=== PATIENT | male | born 1935 | race Caucasian/White ===

== ENCOUNTER 2017-03-05 12:51 | Inpatient (IN) | payer OTHER ==
[~2017-03-05] VITALS: Ht 172.7 cm; Wt 73.8 kg
[2017-03-05 14:19] LABS: EOSINOPHIL (%) 1.9 % (0-5); EOSINOPHIL COUNT 0.1 K/uL (0-0.3); IMMATURE GRANULOCYTE (%) 0.3 % (0.0-0.7); INSTRUMENT ABS NEUTROPHIL CT 4.6 K/uL; LYMPHOCYTE COUNT 1.1 K/uL (1.0-2.8); MCHC 35.2 G/DL (30.0-36.0); MCV 93.8 FL (86-99); MONOCYTE (%) 6.3 % (3-12); MONOCYTE COUNT 0.4 K/uL (0-0.8); NEUTROPHIL (%) 73.9 % (45-76); NEUTROPHIL COUNT 4.6 K/uL (1.8-6.4); PLATELET COUNT 169 K/uL (156-360); RBC DIS.WIDTH-CV 12.2 % (11.8-14.6); RBC DIS.WIDTH-SD 41.9 % (39-53); RED BLOOD COUNT 3.52 M/uL (4.00-5.50); WHITE BLOOD COUNT 6.2 K/uL (4.1-10.2)
[2017-03-05 14:20] LABS: ADD MIUA? NO; BILIRUBIN NEGATIVE; BLOOD NEGATIVE; COLOR YELLOW ((YELLOW)); GLUCOSE (STRIP) >=500; KETONES NEGATIVE; LEUKOCYTES NEGATIVE; NITRITE NEGATIVE; PROTEIN (STRIP) 30; SPECIFIC GRAVITY 1.015 (1.000-1.030); UCUL ADDED? NO; UROBILINOGEN 0.2 MG/DL (0.2-1.0)
[2017-03-05 14:32] LABS: PROTHROMBIN TIME 11.5 SEC (10.2-12.9)
[2017-03-05 14:35] LABS: PTT 27.3 SEC (25-37)
[2017-03-05 14:44] LABS: TROP-I INTERPRETATION NEGATIVE; TROPONIN-I < 0.01 ng/mL (0.0-0.30)
[2017-03-05 15:08] LABS: CHLORIDE 104 mEq/L (99-109); POTASSIUM 4.3 mEq/L (3.7-5.4); SODIUM 137 mEq/L (136-147)
[2017-03-05 15:10] LABS: GLUCOSE 274 mg/dL (70-99)
[2017-03-05 15:11] LABS: ANION GAP 12 MEQ/L (2-14)
[2017-03-05 15:14] LABS: GFR ESTIMATE (CALCULATED) 25 mL/min/
[2017-03-05 15:15] LABS: UREA NITROGEN (BUN) 31 mg/dL (9-23)
[2017-03-05] MEDS ORDERED: IRON325 M1 PO (16:54)
[2017-03-05] MEDS ORDERED: GABAPENTIN600 MG PO (16:54)
[2017-03-05] MEDS ORDERED: ERGOCALCIF50000 UNIT PO (16:54)
[2017-03-05] MEDS ORDERED: LISINOPRIL20 MG PO (16:55)
[2017-03-05] MEDS ORDERED: GEMFIBROZIL600 MG PO (16:56)
[2017-03-05] MEDS ORDERED: DONEPEZIL HCL10 MG PO (16:56)
[2017-03-05] MEDS ORDERED: OMEPRAZOLE40 M1 PO (16:56)
[2017-03-05] MEDS ORDERED: PRAVASTATIN SOD40 MG PO (16:57)
[2017-03-05] MEDS ORDERED: LOPRESSOR50 MG PO (16:57)
[2017-03-05] MEDS ORDERED: IBUPROFEN800 MG PO (16:57)
[2017-03-05] MEDS ORDERED: HYDROCHLOROTHIA25 MG PO (16:57)
[2017-03-05] MEDS ORDERED: TRAMADOL HCL50 MG PO (16:58)
[2017-03-05] MEDS ORDERED: AMARYL4 MG PO (16:58)
[2017-03-05] MEDS ORDERED: BISOPROLOL FUMAR5 MG PO (16:58)
[2017-03-05] MEDS ORDERED: LO-DOSE ASPIRIN81 M2 PO (16:59)
[2017-03-05 17:48] VITALS: BP 146/82
[2017-03-05 18:21] LABS: POINT-OF-CARE METER ID UU14174225
[2017-03-05 19:48] VITALS: BP 152/88
[2017-03-05 21:28] LABS: POINT-OF-CARE METER ID UU14174225
[2017-03-05 23:42] VITALS: BP 166/79
[2017-03-06 06:11] LABS: MCH 33.1 PG (29.0-34.0); MCHC 35.5 G/DL (30.0-36.0); MCV 93.4 FL (86-99); MEAN PLAT.VOLUME 12.1 uM^3 (9.0-12.4); PLATELET COUNT 158 K/uL (156-360); RBC DIS.WIDTH-CV 12.1 % (11.8-14.6); RBC DIS.WIDTH-SD 41.2 % (39-53); RED BLOOD COUNT 3.32 M/uL (4.00-5.50); WHITE BLOOD COUNT 7.1 K/uL (4.1-10.2)
[2017-03-06 06:38] LABS: ANION GAP 13 MEQ/L (2-14); CHLORIDE 105 MEQ/L (99-109); GFR ESTIMATE (CALCULATED) 37 mL/min/; GLUCOSE 155 mg/dL (70-99); HDL CHOLESTEROL 31 MG/DL (Desirable>=40); NON-HDL CHOLESTEROL 162 mg/dL (Desirable<160); POTASSIUM 3.9 MEQ/L (3.7-5.4); SAMPLE HEMOLYSIS CHECK 0; SAMPLE ICTERIC CHECK 0; SAMPLE LIPEMIA CHECK 0; SODIUM 139 MEQ/L (136-147); TOTAL CHOLESTEROL 193 mg/dL (Desirable<200); TRIGLYCERIDES 418 MG/DL (Normal: <150); UREA NITROGEN (BUN) 31 mg/dL (9-23)
[2017-03-06 07:42] LABS: POINT-OF-CARE METER ID UU13113717
[2017-03-06 08:48] VITALS: BP 156/89
[2017-03-06 09:57] LABS: Estimated Average Glucose 220 mg/dL (70-123); HEMOGLOBIN A1c (GLYCOHEMOGLOB) 9.3 % HGB (Below 5.7)
[2017-03-06 12:24] VITALS: BP 144/78
[2017-03-06 15:46] VITALS: BP 138/74
[2017-03-06 19:47] VITALS: BP 180/81
[2017-03-06 20:44] LABS: POINT-OF-CARE METER ID UU13113717
[2017-03-07 00:29] VITALS: BP 189/88
[2017-03-07 03:41] VITALS: BP 187/78
[2017-03-07 08:01] VITALS: BP 180/84
[2017-03-07 08:37] LABS: POINT-OF-CARE METER ID UU14174225
[2017-03-07 08:44] LABS: HEMATOCRIT 32.7 % (38.0-50.0); MCHC 36.1 G/DL (30.0-36.0); MCV 94.2 FL (86-99); NRBC (%) 0.4 /100 WBC (0-0); PLATELET COUNT 177 K/uL (156-360); RBC DIS.WIDTH-CV 12.4 % (11.8-14.6); RBC DIS.WIDTH-SD 42.3 % (39-53); RED BLOOD COUNT 3.47 M/uL (4.00-5.50); WHITE BLOOD COUNT 7.9 K/uL (4.1-10.2)
[2017-03-07 11:13] LABS: ANION GAP 12 MEQ/L (2-14); CHLORIDE 107 MEQ/L (99-109); POTASSIUM 4.2 MEQ/L (3.7-5.4); SAMPLE HEMOLYSIS CHECK 0; SAMPLE ICTERIC CHECK 0; SAMPLE LIPEMIA CHECK 0; SODIUM 136 MEQ/L (136-147)
[2017-03-07 11:21] LABS: GFR ESTIMATE (CALCULATED) 39 mL/min/; UREA NITROGEN (BUN) 28 mg/dL (9-23)
[2017-03-07 11:32] LABS: GLUCOSE 253 mg/dL (70-99)
[2017-03-07 15:09] VITALS: BP 137/80
[2017-03-07 17:08] LABS: POINT-OF-CARE METER ID UU14188625
[2017-03-07 23:32] VITALS: BP 178/83
[2017-03-08 07:51] LABS: HEMATOCRIT 32.2 % (38.0-50.0); MCH 32.9 PG (29.0-34.0); MCHC 35.4 G/DL (30.0-36.0); MCV 93.1 FL (86-99); MEAN PLAT.VOLUME 12.2 uM^3 (9.0-12.4); PLATELET COUNT 174 K/uL (156-360); RBC DIS.WIDTH-CV 12.5 % (11.8-14.6); RBC DIS.WIDTH-SD 42.2 % (39-53); RED BLOOD COUNT 3.46 M/uL (4.00-5.50)
[2017-03-08 08:01] LABS: CHLORIDE 109 mEq/L (99-109); POTASSIUM 4.4 mEq/L (3.7-5.4); SODIUM 139 mEq/L (136-147)
[2017-03-08 08:02] LABS: GLUCOSE 161 mg/dL (70-99)
[2017-03-08 08:04] LABS: ANION GAP 7 MEQ/L (2-14)
[2017-03-08 08:06] LABS: GFR ESTIMATE (CALCULATED) 37 mL/min/
[2017-03-08 08:07] LABS: UREA NITROGEN (BUN) 30 mg/dL (9-23)
[2017-03-08 08:43] VITALS: BP 142/70
[2017-03-08 09:09] LABS: BASE EXCESS -2.3 mEq/L (-3 to +3); BICARBONATE 20.6 mEq/L (22-26); CARBOXY HGB 0.4 % (0-5); COMMENTS - BLOOD GASES A+C+; DEVICE RA; FI02 21 %; PCO2 29 mm Hg (35-45); PO2 78 mm Hg (80-100); SITE RRA; TOTAL RESP RATE 16 resp/min; pH 7.46 (7.35-7.45)
[2017-03-08 11:31] VITALS: BP 172/75
[2017-03-08 12:19] LABS: POINT-OF-CARE METER ID UU13113717
[2017-03-08 16:09] VITALS: BP 160/74
[2017-03-08 17:05] LABS: POINT-OF-CARE METER ID UU13113717
[2017-03-08 20:00] VITALS: BP 144/73
[2017-03-08 21:02] LABS: POINT-OF-CARE METER ID UU13113717
[2017-03-09 00:09] VITALS: BP 139/72
[2017-03-09 04:14] VITALS: BP 141/80
[2017-03-09 07:07] LABS: MCHC 35.8 G/DL (30.0-36.0); MCV 95.1 FL (86-99); MEAN PLAT.VOLUME 12.4 uM^3 (9.0-12.4); PLATELET COUNT 149 K/uL (156-360); RBC DIS.WIDTH-CV 12.6 % (11.8-14.6); RBC DIS.WIDTH-SD 43.8 % (39-53); RED BLOOD COUNT 3.26 M/uL (4.00-5.50); WHITE BLOOD COUNT 7.2 K/uL (4.1-10.2)
[2017-03-09 07:35] LABS: ANION GAP 11 MEQ/L (2-14); CHLORIDE 108 MEQ/L (99-109); GFR ESTIMATE (CALCULATED) 45 mL/min/; GLUCOSE 153 mg/dL (70-99); SAMPLE HEMOLYSIS CHECK 0; SAMPLE ICTERIC CHECK 0; SAMPLE LIPEMIA CHECK 0; SODIUM 139 MEQ/L (136-147); UREA NITROGEN (BUN) 26 mg/dL (9-23)
[2017-03-09 07:44] VITALS: BP 166/72
[2017-03-09 11:47] LABS: POINT-OF-CARE METER ID UU14188625
[2017-03-09 12:06] VITALS: BP 184/72
[2017-03-09] MEDS ORDERED: NORVASC5 MG PO (12:35)
[2017-03-09] MEDS ORDERED: ASPIRIN EC325 MG PO (12:35)
[2017-03-09 14:19] VITALS: BP 147/78
[2017-03-09 16:12] VITALS: BP 140/84
== END 2017-03-09 18:30 | disposition home health service (06) | DRG 65 ==
LOC: EME → EDBD 12:51 → 5SOUTH 15:32 → EDOF 15:32 → ENRESERV 15:33 → 5SOUTH 17:08
PROVIDERS: Emergency Medicine; Hospitalist; Internal Medicine; Physician Assistant
DX: I63.9 Cerebral infarction, unspecified (principal); N17.9 Acute kidney failure, unspecified; I65.1 Occlusion and stenosis of basilar artery; I65.23 Occlusion and stenosis of bilateral carotid arteries; E11.65 Type 2 diabetes mellitus with hyperglycemia; E11.22 Type 2 diabetes mellitus with diabetic chronic kidney disease; R26.2 Difficulty in walking, not elsewhere classified; R47.1 Dysarthria and anarthria; R29.810 Facial weakness; R29.707 NIHSS score 7; I12.9 Hypertensive chronic kidney disease with stage 1 through stage 4 chronic kidney disease, or unspecified chronic kidney disease; N18.3 Chronic kidney disease, stage 3 (moderate); E78.2 Mixed hyperlipidemia; K21.9 Gastro-esophageal reflux disease without esophagitis; Z66 Do not resuscitate; R53.1 Weakness; B91 Sequelae of poliomyelitis; Z79.82 Long term (current) use of aspirin; Z87.891 Personal history of nicotine dependence
CPT/HCPCS: 36600; 70450; 70496; 70498; 71010; 80048; 80061; 81003; 82803; 82948; 83036; 84484; 85025; 85027; 85610; 85730; 92526 GN; 92610 GN; 93880; 97530 GO; 97530 GP; 99281; 99284; J0360; J1644; J1815; J7030